=== PATIENT | female | born 1990 | race Caucasian/White ===

== ENCOUNTER 2019-06-17 11:14 | Observation (INO) ==
[2019-06-17 11:45] LABS: Basophils # 0.1 K/mcL (0.0-0.2); Basophils % 0.4 %; Eosinophils # 0.6 K/mcL (0.0-0.6); Hematocrit 44.3 % (35.3-44.9); Hemoglobin 14.6 g/dL (11.5-15.4); Immature Granulocytes % 0.5 % (0-4); Lymphocytes # 3.2 K/mcL (0.6-4.6); Lymphocytes % 17.1 %; Mean Corpuscular Hemoglobin 29.2 pg (28.0-33.3); Mean Corpuscular Volume 88.6 fL (83.0-100.0); Mean Platelet Volume 9.8 fL (9.4-12.4); Monocytes # 1.3 K/mcL (0.0-1.3); Neutrophils # 13.6 K/mcL (1.6-8.9); Platelet Count 287 K/mcL (140-400); Red Cell Distribution Width 14.4 % (11.5-14.5); White Blood Count 18.9 K/mcL (4.3-11.1)
[2019-06-17] MEDS ORDERED: 0.9 % Sodium Chloride 1,000 ML IVC ONE ×2 (11:48→13:34)
--- NOTE | 2019-06-17 11:51 | Emergency Department Note ---
Disposition Clinical Impression: Left flank pain, Pyelonephritis UTI (urinary tract infection) Qualifiers: Urinary tract infection type: site unspecified Hematuria presence: with hematuria Qualified Code(s): N39.0 - Urinary tract infection, site not specified Sepsis Qualifiers: Sepsis type: sepsis due to unspecified organism Qualified Code(s): A41.9 - Sepsis, unspecified organism Disposition: Admitted As Inpatient Condition: Undetermined Time of Disposition: 13:48 Abdominal Pain HPI - General Chief Complaint: ED Abdominal Pain Stated Complaint: "kidney stone" Time Seen by Provider: 06/17/19 11:23 Source: patient Mode of arrival: private vehicle Limitations: no limitations Nursing Notes Reviewed: Yes Vital Signs Reviewed: Yes - History of Present Illness HPI Narrative: Patient is a 28 year old Female with no PMHx. She is presenting with CC of bilateral flank pain two nights ago. First day of her last normal menstrual period was June 03. She complains of right flank pain two nights ago that was intermittently sharp. Radiated into the right lower quadrant yesterday morning. The following day she has dysuria, urgency, some intermittent hematuria. She heard a clunk in the toilet in the evening. Right flank pain resolved. She complains of left flank pain radiating into the left groin that is intermittently dull and at times sharp. Nothing makes it better or worse. She still complains of dysuria, urinary urgency, no hematuria. Normal BM this morning. Denies fevers, chills, nausea, vomiting, chest pain, shortness of breath. Denies abnormal vaginal discharge, history of STI/STD. History of one section. Pain Scale: 7 - Related Data Home Medications Medication Instructions Recorded Confirmed Benadryl 08/30/18 Previous Rx's Medication Instructions Recorded carBAMazepine [Carbamazepine ER] 200 mg PO BID 7 Days #14 tab 08/30/18 Allergies Allergy/AdvReac Type Severity Reaction Status Date / Time No Known Allergies Allergy Verified 08/30/18 17:41 All systems ED: reviewed and negative except as stated. Review of Systems: As Per HPI Constitutional: Denies: fever, chills Cardiovascular: Denies: chest pain, palpitations Respiratory: Denies: cough, dyspnea Gastrointestinal: Reports: abdominal pain. Denies: nausea, vomiting, diarrhea, constipation, melena, hematochezia Genitourinary: Reports: urgency, dysuria, hematuria. Denies: discharge Musculoskeletal: Reports: back pain Neurological: Denies: headache, weakness, numbness Abdominal Pain PMH - Past Medical History Medical history: Reports: no medical history Female Surgical History: Reports: Psychiatric history: Reports: no psych history - Social History Smoking status: Never smoker Alcohol use: Reports: occasionally Drug use: Reports: none Physical Exam - General Limitations: no limitations General appearance: alert, in no apparent distress - Head Head exam: atraumatic, normocephalic - Eye Eye exam: Present: normal appearance, EOMI - ENT ENT exam: mucous membranes dry - Neck Neck exam: Present: normal inspection, trachea midline - Chest Chest inspection: Present: normal inspection, symmetric chest wall rise - Respiratory Respiratory exam: Present: normal lung sounds bilaterally. Absent: respiratory distress - Cardiovascular Cardiovascular exam: Present: normal rhythm, tachycardia, normal heart sounds - Abdominal Exam Abdominal exam: Present: soft, other (Mild left CVA and left lower quadrant abdominal tenderness to palpation without guarding, rebound, rigidity) - Extremities Exam Extremities exam: Present: normal capillary refill. Absent: pedal edema, calf tenderness - Back Exam Back exam: Present: CVA tenderness (L) - Neurological Exam Neurological exam: Present: alert, oriented X3 - Psychiatric Psychiatric exam: Present: normal affect, normal mood - Skin Skin exam: Present: warm, dry. Absent: diaphoresis, pallor Course Vital Signs Temperature 99.1 F 06/17/19 11:16 Pulse Rate 122 06/17/19 11:16 Respiratory Rate 16 06/17/19 11:16 Blood Pressure 128/87 06/17/19 11:16 O2 Sat by Pulse Oximetry 98 06/17/19 11:16 Temperature 99.1 F 06/17/19 11:16 Pulse Rate 79 06/17/19 14:08 Respiratory Rate 16 06/17/19 14:08 Blood Pressure 114/69 06/17/19 14:08 O2 Sat by Pulse Oximetry 97 06/17/19 14:08 Oxygen Delivery Oxygen Delivery Room Air Abdominal Pain - MDM Narrative Medical decision making narrative: Patient is nontoxic appearing, afebrile. She is slightly tachycardic with heart rate in the 115-120s. She appears dry. We will give her a liter of IV fluids. CBC, BMP, hepatic panel, lipase will be obtained. Urinalysis and urine pregnanc y will be obtained. High clinical suspicion for kidney stone, urinary tract infection possible pyelonephritis. Once urine comes back negative, will give the patient IV Toradol and obtain CT abdomen and pelvis as the patient has no history of kidney stones. Patient denies any abnormal vaginal discharge or bleeding. 12:30 Lactate is 0.7. Patient does have a urinary tract infection. We will give IV Rocephin to cover for possible pyelonephritis. We will obtain CT abdomen and pelvis without IV contrast. We will give her Toradol for pain. negative. 13:[address] results reviewed. She has bilateral pyelonephritis. She has a urinary tract infection. Urine culture sent. She is sepsis secondary to pyelonephritis. No stones were seen on the CT. BUN and Cr within normal limits. 13:30 Patient is still tachycardic and we will give another liter of IV fluids. Heart rate is in 110's. Hospitalist paged for admission. 13:[address] Bajwa, hospitalist who accepts admission. - Medical Records Medical records reviewed: Yes I reviewed the patient's medical records. - Lab Data Lab results reviewed: Yes I reviewed the patient's lab results. Result diagrams: 06/17/19 11:38 06/17/19 11:38 Lab Results 06/17/19 06/17/19 06/17/19 Range/Units 11:38 11:38 11:56 WBC 18.9 H (4.3-11.1) K/mcL RBC 5.00 H (3.82-4.97) M/mcL Hgb 14.6 (11.5-15.4) g/dL Hct 44.3 (35.3-44.9) % MCV 88.6 (83.0-100.0) fL MCH 29.2 (28.0-33.3) pg MCHC 33.0 (31.6-35.5) g/dL RDW 14.4 (11.5-14.5) % Plt Count 287 (140-400) K/mcL MPV 9.8 (9.4-12.4) fL Immature Gran % 0.5 (0-4) % Seg Neutrophils % 72.0 % Lymphocytes % 17.1 % Monocytes % 7.0 % Eosinophils % 3.0 % Basophils % 0.4 % Neutrophils # 13.6 H (1.6-8.9) K/mcL Lymphocytes # 3.2 (0.6-4.6) K/mcL Monocytes # 1.3 (0.0-1.3) K/mcL Eosinophils # 0.6 (0.0-0.6) K/mcL Basophils # 0.1 (0.0-0.2) K/mcL Sodium 139 (136-145) mEq/L Potassium 4.3 (3.5-5.1) mEq/L Chloride 110 H (98-107) mEq/L Carbon Dioxide 22 L (23-29) mEq/L BUN 6 (6-20) mg/dL Creatinine 0.72 (0.60-1.20) mg/dL Est GFR ( Amer) > 60 (> 60) Est GFR (Non-Af Amer) > 60 (> 60) BUN/Creatinine Ratio 8 (6-26) Glucose 90 (70-105) mg/dL Calculated Osmolality 285 (280-300) Lactic Acid 0.7 (0.5-2.2) mmol/L Calcium 8.7 (8.6-10.3) mg/dL Total Bilirubin 0.3 (0.3-1.0) mg/dL Direct Bilirubin 0.1 (0.0-0.2) mg/dL Indirect Bilirubin 0.2 (0.0-1.2) mg/dL AST 12 L (13-39) Units/L ALT 10 (7-52) Units/L Alkaline Phosphatase 41 (34-104) Units/L Serum Total Protein 6.9 (6.4-8.9) g/dL Albumin 4.1 (3.5-5.7) g/dL Globulin 2.8 (2.4-3.5) g/dL Albumin/Globulin Ratio 1.5 (1.1-2.2) Amylase 16 L (29-103) Units/L Lipase 3 L (11-82) Units/L Urine Color (Yellow) Urine Clarity (Clear) Urine pH (5.0-8.0) pH Units Ur Specific [place] (1.010-1.025) Urine Protein (Neg-Trace) mg/dL Urine Glucose (UA) (Normal) mg/dL Urine Ketones (Negative) mg/dL Urine Blood (Negative) Urine Nitrite (Negative) Urine Bilirubin (Negative) Urine Urobilinogen (Normal) mg/dL Ur Leukocyte Esterase (Negative) Urine Microscopic RBC (0-3) per hpf Urine Microscopic WBC (0-3) per hpf Ur Squamous Epith Cells (None-Few) per lpf Urine Bacteria (None-Few) per hpf Hyaline Casts (None-Few) per lpf Ur Culture Indicated? (NO) Urine Test (Negative) 06/17/19 06/17/19 Range/Units 12:00 12:00 WBC (4.3-11.1) K/mcL RBC (3.82-4.97) M/mcL Hgb (11.5-15.4) g/dL Hct (35.3-44.9) % MCV (83.0-100.0) fL MCH (28.0-33.3) pg MCHC (31.6-35.5) g/dL RDW (11.5-14.5) % Plt Count (140-400) K/mcL MPV (9.4-12.4) fL Immature Gran % (0-4) % Seg Neutrophils % % Lymphocytes % % Monocytes % % Eosinophils % % Basophils % % Neutrophils # (1.6-8.9) K/mcL Lymphocytes # (0.6-4.6) K/mcL Monocytes # (0.0-1.3) K/mcL Eosinophils # (0.0-0.6) K/mcL Basophils # (0.0-0.2) K/mcL Sodium (136-145) mEq/L Potassium (3.5-5.1) mEq/L Chloride (98-107) mEq/L Carbon Dioxide (23-29) mEq/L BUN (6-20) mg/dL Creatinine (0.60-1.20) mg/dL Est GFR ( Amer) (> 60) Est GFR (Non-Af Amer) (> 60) BUN/Creatinine Ratio (6-26) Glucose (70-105) mg/dL Calculated Osmolality (280-300) Lactic Acid (0.5-2.2) mmol/L Calcium (8.6-10.3) mg/dL Total Bilirubin (0.3-1.0) mg/dL Direct Bilirubin (0.0-0.2) mg/dL Indirect Bilirubin (0.0-1.2) mg/dL AST (13-39) Units/L ALT (7-52) Units/L Alkaline Phosphatase (34-104) Units/L Serum Total Protein (6.4-8.9) g/dL Albumin (3.5-5.7) g/dL Globulin (2.4-3.5) g/dL Albumin/Globulin Ratio (1.1-2.2) Amylase (29-103) Units/L Lipase (11-82) Units/L Urine Color Yellow (Yellow) Urine Clarity Cloudy A (Clear) Urine pH 6.5 (5.0-8.0) pH Units Ur Specific [place] 1.012 (1.010-1.025) Urine Protein >=300 H (Neg-Trace) mg/dL Urine Glucose (UA) Normal (Normal) mg/dL Urine Ketones Negative (Negative) mg/dL Urine Blood Large H (Negative) Urine Nitrite Negative (Negative) Urine Bilirubin Negative (Negative) Urine Urobilinogen Normal (Normal) mg/dL Ur Leukocyte Esterase Moderate H (Negative) Urine Microscopic RBC TNTC H (0-3) per hpf Urine Microscopic WBC TNTC H (0-3) per hpf Ur Squamous Epith Cells Many H (None-Few) per lpf Urine Bacteria Moderate H (None-Few) per hpf Hyaline Casts None Seen (None-Few) per lpf Ur Culture Indicated? YES A (NO) Urine Test Negative (Negative) - Radiology Data Radiology results reviewed: Yes I reviewed the patient's radiology results. Abdomen/Pelvis CT 06/17/19 12:37 IMPRESSION: Moderate inflammation of the urinary bladder. [id number] inflammation involving the bilateral ureters. Minimal bilateral hydronephrosis. No obstructing or nonobstructing renal calculi identified. Findings may be seen in setting of a bilateral pyelonephritis and UTI. Correlation with UA/urine culture is recommended. Appendix is not identified. No secondary CT evidence of acute appendicitis. Slightly asymmetric left adnexal lesion. If further evaluation is clinically warranted, follow-up pelvic ultrasound may be obtained. D/ / Rigoberto Irvin MD / Rigoberto Irvin MD Interpreting Provider: Rigoberto Irvin MD Critical Care Time Critical Care Time: Yes Total Critical Care Time: 35 Attestation: Critical care time 35 minutes managing patient's sepsis and bilateral pyelonephritis. Attestation Statement - Attestation Attestation: Patient was seen with resident physician. I reviewed the history, physical, assessment and plan, and agree with the findings. I also personally evaluated this patient and had [id number]-[id number] time with this patient. 28-year-old female presents to the emergency Department chief complaint of bilateral flank pain. Patient states it started on both sides but now is mostly in the left flank. Radiates down anteriorly. No history of kidney stones. She has had some dysuria and some hematuria as well. She denies fevers or chills. Does not nausea vomiting or diarrhea. Symptoms of been ongoing for last couple days. She is not sure she is . Review of systems as above remainder negative. Physical exam vital signs are stable. ENT is unremarkable. Heart regular rhythm and rate. Lungs are clear. Abdomen is soft and nontender. Extremities are unremarkable. Neurologically intact. Skin no rashes. Psych normal. ED course. Patient sure and was positive for signs of infection. She is given antibiotics. CT scan was also obtained. I think patient likely has pyelonephritis based on symptoms and findings she also has an elevated white b lood cell count. Although the patient appeared well CT scan revealed bilateral pyelo-. Additionally her vital signs were indicative of some sepsis. I think this is relatively mild at this point, we will admit the patient for IV antibiotics and additional management is indicated. We spoke with the hospitalist service who agrees to accept the patient for admission. I agree with the resident physician assessment and plan.
[2019-06-17] MEDS ORDERED: Ketorolac 15 MG/ML VIAL IVP ONE ×2 (11:52→12:36)
[2019-06-17 12:08] LABS: Bilirubin,Urine Negative (Negative); Blood,Urine Large (Negative); Clarity,Urine Cloudy (Clear); Color,Urine Yellow (Yellow); Glucose,Urine (UA) Normal (Normal); Ketones,Urine Negative (Negative); Leukocyte Esterase,Urine Moderate (Negative); Nitrite,Urine Negative (Negative); PH,Urine 6.5 pH Units (5.0-8.0); Protein,Urine >=300 mg/dL (Neg-Trace); Specific Gravity,Urine 1.012 (1.010-1.025); Urobilinogen,Urine Normal (Normal)
[2019-06-17 12:11] LABS: Bacteria,Urine Moderate per hpf (None-Few); Hyaline Casts,Urine None Seen per lpf (None-Few); RBC,Urine TNTC per hpf (0-3); Squamous Epithelial Cell,Urine Many per lpf (None-Few); WBC,Urine TNTC per hpf (0-3)
[2019-06-17] MEDS ORDERED: cefTRIAXone 1,000 MG in Water for inj. (sterile) 10 ML IVP ONE (12:36)
[2019-06-17 12:47] LABS: Alanine Aminotransferase 10 Units/L (7-52); Albumin 4.1 g/dL (3.5-5.7); Albumin/Globulin Ratio 1.5 (1.1-2.2); Alkaline Phosphatase 41 Units/L (34-104); Amylase 16 Units/L (29-103); Aspartate Amino Transferase 12 Units/L (13-39); BUN/Creatinine Ratio 8 (6-26); Bilirubin,Direct 0.1 mg/dL (0.0-0.2); Bilirubin,Indirect 0.2 mg/dL (0.0-1.2); Bilirubin,Total 0.3 mg/dL (0.3-1.0); Blood Urea Nitrogen 6 mg/dL (6-20); Calcium 8.7 mg/dL (8.6-10.3); Carbon Dioxide 22 mEq/L (23-29); Chloride 110 mEq/L (98-107); Globulin 2.8 g/dL (2.4-3.5); Glucose 90 mg/dL (70-105); Lipase 3 Units/L (11-82); Osmolality,Calculated 285 (280-300); Potassium 4.3 mEq/L (3.5-5.1); Sodium 139 mEq/L (136-145); Total Protein 6.9 g/dL (6.4-8.9); eGFR For African Americans > 60 (> 60); eGFR For Non-African Americans > 60 (> 60)
[2019-06-17] MEDS ORDERED: Acetaminophen 325 MG TABLET PO PRN (14:07)
[2019-06-17] MEDS ORDERED: Naloxone 0.4 MG/ML INJ IVP PRN (14:07)
--- NOTE | 2019-06-17 14:07 | Internal Med History&Physical ---
Date of Encounter: 06/17/19 Time of Encounter: 14:06 Internal Medicine - H&P: HPI History of present illness: Patient is a 28 year old Female with PMH of UTI who presented with B/L flank pain, the patient describes the pain as sharp radiating to her lower quadrant. She also complain of dysuria, urgency and increased frequency of urination as well as hematuria. The patient was evaluated by the ER staff and CAT scan of the abdomen was obtained and revealed evidence of minimal bilateral nephr olithiasis as well as bilateral pyelonephritis the patient was started on empiric antibiotic with Rocephin. Blood cultures and urine culture was obtained and the patient was admitted for further evaluation and management of bilateral pyelonephritis, given that there is no evidence of stones on CAT scan ER staff decided not to consult urology for the minimal hydro-nephrosis that was appreciated and the CT scan. Patient denies fever, chills, abdominal pain, diarrhea, nausea, vomiting, chest pain, shortness of breath, palpitation and progressive setting of lower extremity edema Past Med Surg Social Fam HX - Past Medical History Medical history: no medical history Psychiatric history: no psych history - Social History Smoking Status: Never smoker Smokeless Tobacco Status: No Alcohol use: occasionally Drug use: none Internal Medicine - H&P: Meds Benadryl 08/30/18 [History] carBAMazepine [Carbamazepine ER] 200 mg PO BID 7 Days #14 tab 08/30/18 [Rx] Allergy/AdvReac Type Severity Reaction Status Date / Time No Known Allergies Allergy Verified 08/30/18 17:41 All Systems PM: A 10-system review of systems was performed and is negative for pertinent findings except as documented above in the HPI. - Constitutional Vitals: Temp Pulse Resp BP Pulse Ox 99.1 F 122 16 128/87 98 06/17/19 11:16 06/17/19 11:16 06/17/19 11:16 06/17/19 11:38 06/17/19 11:16 General appearance: Present: A&O X 3 - Head Head exam: Present: atraumatic, normocephalic - Neck Neck exam general surgery: Present: supple, trachea midline. Absent: lymphadenopathy - Respiratory Respiratory exam: Present: CTAB. Absent: accessory muscle use, rales, rhonchi, wheezes - Cardiovascular Cardiovascular exam: Present: RRR, +S1, +S2. Absent: diastolic murmur, gallop, rubs, systolic murmur - GI/Abdominal GI/Abdominal exam: Present: soft, tenderness, no peritoneal signs. Absent: distended - Extremities Exam Extremities exam: Present: warm, radial pulses palpable and symmetrical. Abs ent: calf tenderness, cyanotic, pedal edema Internal Med - H&P Results - Labs CBC & Chem 7: 06/17/19 11:38 06/17/19 11:38 Labs: Short CBC 06/17/19 Range/Units 11:38 WBC 18.9 H (4.3-11.1) K/mcL Hgb 14.6 (11.5-15.4) g/dL Hct 44.3 (35.3-44.9) % Plt Count 287 (140-400) K/mcL Neutrophils # 13.6 H (1.6-8.9) K/mcL BMP 06/17/19 11:38 Sodium 139 Potassium 4.3 Chloride 110 H Carbon Dioxide 22 L BUN 6 Creatinine 0.72 Glucose 90 Calcium 8.7 Liver Function 06/17/19 Range/Units 11:38 Total Bilirubin 0.3 (0.3-1.0) mg/dL Direct Bilirubin 0.1 (0.0-0.2) mg/dL AST 12 L (13-39) Units/L ALT 10 (7-52) Units/L Alkaline Phosphatase 41 (34-104) Units/L Albumin 4.1 (3.5-5.7) g/dL Urine 06/17/19 Range/Units 12:00 Urine Color Yellow (Yellow) Urine Clarity Cloudy A (Clear) Urine pH 6.5 (5.0-8.0) pH Units Ur Specific [place] 1.012 (1.010-1.025) Urine Protein >=300 H (Neg-Trace) mg/dL Urine Glucose (UA) Normal (Normal) mg/dL - Impressions ITS Impressions Abdomen/Pelvis CT 06/17/19 12:37 IMPRESSION: Moderate inflammation of the urinary bladder. [id number] inflammation involving the bilateral ureters. Minimal bilateral hydronephrosis. No obstructing or nonobstructing renal calculi identified. Findings may be seen in setting of a bilateral pyelonephritis and UTI. Correlation with UA/urine culture is recommended. Appendix is not identified. No secondary CT evidence of acute appendicitis. Slightly asymmetric left adnexal lesion. If further evaluation is clinically warranted, follow-up pelvic ultrasound may be obtained. D/ / Rigobreto Irvin MD / Rigoberto Irvin MD Interpreting Provider: Rigoberto Irvin MD - Assessment and Plan (1) Pyelonephritis Current Visit: Yes Status: Resolved Assessment and plan: We will start the patient on empiric antibiotic with Rocephin, we will continue to monitor blood culture and urine culture results and adjust antibiotic regimen accordingly. We will start the patient on IV hydration with normal saline. (2) Bilateral hydronephrosis Current Visit: Yes Status: Acute Assessment and plan: As better CAT scan results is no evidence of kidney stones and bilateral hydronephrosis is minimal. - Time Spent With Patient Total time spent is greater than 50% in coordination of care (as documented) at patient's floor/unit and/or counseling patient:
[2019-06-17] MEDS: 0.9 % Sodium Chloride 1,000 ML IVC SCH ×2 (15:32→23:26)
[2019-06-17] MEDS: *HR* HYDROcodone/Acet 5/325 mg TABLET PO PRN (17:13)
[2019-06-17] MEDS: Ondansetron 4 MG/2 ML VIAL IVP PRN (18:25)
[2019-06-17 21:27] LABS: Bilirubin,Urine Negative (Negative); Blood,Urine Large (Negative); Clarity,Urine Cloudy (Clear); Color,Urine Yellow (Yellow); Glucose,Urine (UA) Normal (Normal); Ketones,Urine Negative (Negative); Leukocyte Esterase,Urine Moderate (Negative); Nitrite,Urine Negative (Negative); PH,Urine 6.5 pH Units (5.0-8.0); Protein,Urine 30 mg/dL (Neg-Trace); Specific Gravity,Urine 1.006 (1.010-1.025); Urobilinogen,Urine Normal (Normal)
[2019-06-17 21:28] LABS: Bacteria,Urine None Seen per hpf (None-Few); Hyaline Casts,Urine None Seen per lpf (None-Few); Squamous Epithelial Cell,Urine Many per lpf (None-Few); WBC,Urine 50-100 per hpf (0-3)
[2019-06-18] MEDS: *HR* HYDROcodone/Acet 5/325 mg TABLET PO PRN ×2 (04:09→18:31)
[2019-06-18 07:57] LABS: Basophils # 0.1 K/mcL (0.0-0.2); Basophils % 0.4 %; Eosinophils # 0.6 K/mcL (0.0-0.6); Eosinophils % 4.3 %; Hematocrit 38.5 % (35.3-44.9); Immature Granulocytes % 0.5 % (0-4); Lymphocytes # 3.7 K/mcL (0.6-4.6); Mean Corpuscular HGB Conc 32.2 g/dL (31.6-35.5); Mean Platelet Volume 10.4 fL (9.4-12.4); Monocytes # 1.3 K/mcL (0.0-1.3); Monocytes % 9.2 %; Platelet Count 243 K/mcL (140-400); Red Blood Count 4.28 M/mcL (3.82-4.97); Red Cell Distribution Width 14.5 % (11.5-14.5); Segmented Neutrophils % 58.6 %; White Blood Count 13.6 K/mcL (4.3-11.1)
[2019-06-18 08:08] LABS: INR 1.2; Prothrombin Time 13.5 Seconds (9.4-12.1)
[2019-06-18 08:11] LABS: Activated Partial Thrombo Time 34.4 Seconds (26.0-36.0)
[2019-06-18 08:16] LABS: Alanine Aminotransferase 7 Units/L (7-52); Albumin 3.3 g/dL (3.5-5.7); Albumin/Globulin Ratio 1.4 (1.1-2.2); Alkaline Phosphatase 37 Units/L (34-104); Aspartate Amino Transferase 9 Units/L (13-39); BUN/Creatinine Ratio 6 (6-26); Bilirubin,Total 0.5 mg/dL (0.3-1.0); Blood Urea Nitrogen 4 mg/dL (6-20); Calcium 8.2 mg/dL (8.6-10.3); Carbon Dioxide 24 mEq/L (23-29); Chloride 112 mEq/L (98-107); Chol/HDL Ratio 4.6 (0-4.9); Cholesterol 142 mg/dL (< 200); Globulin 2.3 g/dL (2.4-3.5); Glucose 87 mg/dL (70-105); HDL Cholesterol 31 mg/dL (40-59); LDL Cholesterol,Calculated 92 mg/dL (0-99); Osmolality,Calculated 288 (280-300); Phosphorous 2.5 mg/dL (2.7-4.5); Potassium 3.6 mEq/L (3.5-5.1); Sodium 141 mEq/L (136-145); Total Protein 5.6 g/dL (6.4-8.9); Triglycerides 94 mg/dL (< 150); eGFR For African Americans > 60 (> 60); eGFR For Non-African Americans > 60 (> 60)
[2019-06-18 08:17] LABS: Hemoglobin 12.4 g/dL (11.5-15.4)
[2019-06-18] MEDS: cefTRIAXone 2,000 MG in Water for inj. (sterile) 20 ML IVP SCH (08:29)
--- NOTE | 2019-06-18 09:37 | Internal Med Progress Note ---
Hospitalist Progress Note - Encounter Date of Encounter: 06/18/19 Time of Encounter: 08:41 - Subjective Interval History: Patient seen and examined this morning at bedside. No acute overnight events. Feeling better. Denies any fevers chills nausea vomiting or diarrhea. Has some left-sided back pain and mild suprapubic pain. Denies previous history of kidney stones. Denies any recent antibiotic usage or recurrent UTI history. - Exam Vitals: Temp Pulse Resp BP Pulse Ox 98.4 F 74 15 103/71 100 06/18/19 06:54 06/18/19 06:54 06/18/19 06:54 06/18/19 06:54 06/18/19 07:57 Exam: General: In no acute distress. Respiratory exam: CTAB. no accessory muscle use, rales, rhonchi, wheezes Cardiovascular exam: RRR, +S1, +S2. no murmur, gallop, rubs. GI/Abdominal exam: Lt CVA tenderness, suprapubic tenderness, Non-distended, normal bowel sounds, soft, no peritoneal signs. Extremities exam: no pedal edema, pulses palpable in b/l lower extremities. no calf tenderness Neurological exam: CN II-XII intact, AO X3, no focal deficits. Skin exam: No skin rash - Assessment and Plan (1) Pyelonephritis Current Visit: Yes Status: Resolved (2) Bilateral hydronephrosis Current Visit: Yes Status: Acute - Summary of Assessment and Plan Summary of Assessment and Plan: Assessment Acute Pyelonephritis Chronic none Plan - CT with minimal b/l hydronephrosis. No obstruction noticed. Abnormal UA. c/w empiric ceftriaxone. f/u blood and urine cultures. c/w IVF - Has finding of Lt adnexal asymetric with Lt sided tenderness. Will obtain pelvic ultrasound. Is monogamous relation but does not use protection. Will obtain urine chlamydia and gonorrhea testing to which patient agrees. Internal Medicine: Result - Labs CBC & Chem 7: 06/18/19 06:42 06/18/19 06:42 Labs: Short CBC 06/17/19 06/18/19 Range/Units 11:38 06:42 WBC 18.9 H 13.6 H (4.3-11.1) K/mcL Hgb 14.6 12.4 D (11.5-15.4) g/dL Hct 44.3 38.5 (35.3-44.9) % Plt Count 287 243 (140-400) K/mcL Neutrophils # 13.6 H 8.0 (1.6-8.9) K/mcL BMP 06/17/19 06/18/19 11:38 06:42 Sodium 139 141 Potassium 4.3 3.6 Chloride 110 H 112 H Carbon Dioxide 22 L 24 BUN 6 4 L Creatinine 0.72 0.65 Glucose 90 87 Calcium 8.7 8.2 L Liver Function 06/17/19 06/18/19 Range/Units 11:38 06:42 Total Bilirubin 0.3 0.5 (0.3-1.0) mg/dL Direct Bilirubin 0.1 (0.0-0.2) mg/dL AST 12 L 9 L (13-39) Units/L ALT 10 7 (7-52) Units/L Alkaline Phosphatase 41 37 (34-104) Units/L Albumin 4.1 3.3 L (3.5-5.7) g/dL Urine 06/17/19 06/17/19 Range/Units 12:00 21:05 Urine Color Yellow Yellow (Yellow) Urine Clarity Cloudy A Cloudy A (Clear) Urine pH 6.5 6.5 (5.0-8.0) pH Units Ur Specific [place] 1.012 1.006 L (1.010-1.025) Urine Protein >=300 H 30 H (Neg-Trace) mg/dL Urine Glucose (UA) Normal Normal (Normal) mg/dL - ABG Interpretation ABG results: PT/INR, D-dimer PT 13.5 Seconds (9.4-12.1) H 06/18/19 06:42 - Impressions Impressions Abdomen/Pelvis CT 06/17/19 12:37 IMPRESSION: Moderate inflammation of the urinary bladder. [id number] inflammation involving the bilateral ureters. Minimal bilateral hydronephrosis. No obstructing or nonobstructing renal calculi identified. Findings may be seen in the setting of bilateral pyelonephritis and UTI. Correlation with UA/urine culture is recommended. Appendix is not identified. No secondary CT evidence of acute appendicitis. Slightly asymmetric left adnexal lesion. If further evaluation is clinically warranted, follow-up pelvic ultrasound may be obtained. D/ / 06/17/2019 14:12:37 Rigoberto Irvin MD / wandy Interpreting Provider: Rigoberto Irvin MD Consult Discharge Plan - Plan Referrals: Juanis Billy CNP [Primary Care Provider] -
[2019-06-18] MEDS ORDERED: Ringers Solution, Lactated 1,000 ML IVC SCH (11:45)
[2019-06-18 14:24] LABS: Chlamydia Trachomatis DNA Ur NOT DETECTED (Not Detect)
[2019-06-18] MEDS: Ondansetron 4 MG/2 ML VIAL IVP PRN (14:33)
[2019-06-19] MEDS: cefTRIAXone 2,000 MG in Water for inj. (sterile) 20 ML IVP SCH (09:00)
[2019-06-19] MEDS: *HR* HYDROcodone/Acet 5/325 mg TABLET PO PRN (09:26)
[2019-06-19 12:23] VITALS: BP 120/79
--- NOTE | 2019-06-19 12:35 | Discharge Summary ---
- NOTES TO OUTPATIENT PROVIDER Notes to Outpatient Provider: Discharged to finish a 10 day course of antibiotics for uncomplicated pyelonephritis with 7 more days of Omnicef Orders not resulted at time of discharge: Pending orders 06/17/19 13:32 Culture,Blood [BC] Stat Date of Encounter: 06/19/19 Time of Encounter: 12:30 - Discharge Diagnosis (1) Pyelonephritis Priority: Primary Status: Resolved (2) Bilateral hydronephrosis Priority: Secondary Status: Acute Hospital course: Ms. Cronin is a 28 year old female with no significant past medical history came in with complain of bilateral flank pain was found to have signs of UTI with pyelonephritis on CT scan with bilateral hydronephrosis. She was started on Rocephin. Clinically she improved over the course of 3 days of her hospital stay. Urine culture grew Escherichia coli pansensitive. Ultrasound was obtained with suspicion of the Lt adnexal Swelling which was unremarkable. chlamydia and gonorrhea was negative. She remained stable and afebrile. She is stable to be discharged home to finish 7 day coarse of Omnicef to finish 10 day course of antibiotics. Discharge discussed with: patient, nurse - Time Spent with Patient Total time spent providing and/or coordinating discharge services: Time spent: Greater than 30 minutes (35) - Discharge Medications Prescriptions: New Cefdinir [Omnicef] 300 mg PO BID 7 Days #14 capsule Home Medications: Cefdinir [Omnicef] 300 mg PO BID 7 Days #14 capsule 06/19/19 [Rx] Allergies/Adverse Reactions: Allergy/AdvReac Type Severity Reaction Status Date / Time No Known Allergies Allergy Verified 06/18/19 17:37 Date of admission: 06/17/19 13:54 Primary care physician: Juanis Billy CNP Discharging clinician: Florina Irvin - Constitutional Vitals: Temp Pulse Resp BP Pulse Ox 98.2 F 66 14 120/79 98 06/19/19 12:21 06/19/19 12:21 06/19/19 12:21 06/19/19 12:21 06/19/19 12:21 Exam: General: In no acute distress. Respiratory exam: CTAB. no accessory muscle use, rales, rhonchi, wheezes Cardiovascular exam: RRR, +S1, +S2. no murmur, gallop, rubs. GI/Abdominal exam: no CVA tenderness, Non-distended, normal bowel sounds, soft, no peritoneal signs. Extremities exam: no pedal edema, pulses palpable in b/l lower extremities. no calf tenderness Neurological exam: CN II-XII intact, AO X3, no focal deficits. Skin exam: No skin rash - Patient Status Disposition: Home, Self-Care Condition: Undetermined - Discharge Instructions Follow Up With: Juanis Billy [employer] [Primary Care Provider] -
== END 2019-06-19 15:26 | disposition home or self-care (01) ==
LOC: EMEROOARM 11:14 → 3ANU 11:14 → SUATTDRO 13:54 → 3ANU 14:54
PROVIDERS: ADMIT Internal Medicine Nephrology; ATTEND Internal Medicine

== ENCOUNTER 2020-08-02 01:59 | Inpatient (IN) ==
[2020-08-02] MEDS ORDERED: EPHEDrine 50 MG/ML VIAL ONE (02:41)
[2020-08-02] MEDS ORDERED: *HR* Morphine Sulfate/PF 10 MG/10 ML AMPUL ONE (02:41)
[2020-08-02] MEDS ORDERED: *HR* FentaNYL (PF) 100 MCG/2 ML VIAL ONE (02:41)
[2020-08-02] MEDS ORDERED: Ringers Solution, Lactated 1,000 ML ONE (02:43)
[2020-08-02] MEDS ORDERED: *HR* Midazolam HCl 2 MG/2 ML VIAL ONE (02:53)
[2020-08-02] MEDS ORDERED: *HR* FentaNYL (PF) 250 MCG/5 ML VIAL ONE ×2 (02:54→03:00)
[2020-08-02] MEDS ORDERED: Metoclopramide 10 MG/2 ML VIAL IVP PRN ×2 (02:56→06:42)
[2020-08-02] MEDS ORDERED: Naloxone 0.4 MG/ML INJ IVP PRN ×2 (02:56→03:39)
[2020-08-02] MEDS ORDERED: Famotidine 20 MG/2 ML VIAL IVP PRN (02:56)
[2020-08-02] MEDS ORDERED: *HR* Oxytocin 10 UNIT/ML VIAL IM ONE (02:58)
[2020-08-02] MEDS ORDERED: Ringers Solution, Lactated 1,000 ML IVC SCH (03:00)
[2020-08-02] MEDS ORDERED: Acetaminophen IV 1,000 MG/100 ML INFUS..BTL ONE (03:03)
[2020-08-02] MEDS ORDERED: Ketorolac 30 MG/ML VIAL ONE (03:03)
[2020-08-02 03:07] LABS: Basophils # 0.1 K/mcL (0.0-0.2); Basophils % 0.4 %; Eosinophils # 0.5 K/mcL (0.0-0.6); Eosinophils % 2.6 %; Hematocrit 31.7 % (35.3-44.9); Hemoglobin 10.7 g/dL (11.5-15.4); Immature Granulocytes % 1.7 % (0-4); Lymphocytes # 3.6 K/mcL (0.6-4.6); Lymphocytes % 18.9 %; Mean Corpuscular HGB Conc 33.8 g/dL (31.6-35.5); Mean Corpuscular Hemoglobin 30.1 pg (28.0-33.3); Mean Platelet Volume 11.2 fL (9.4-12.4); Monocytes # 1.2 K/mcL (0.0-1.3); Monocytes % 6.5 %; Neutrophils # 13.1 K/mcL (1.6-8.9); Platelet Count 329 K/mcL (140-400); Red Blood Count 3.56 M/mcL (3.82-4.97); Red Cell Distribution Width 13.7 % (11.5-14.5); Segmented Neutrophils % 69.9 %; White Blood Count 18.8 K/mcL (4.3-11.1)
[2020-08-02] MEDS ORDERED: Lidocaine -MPF 2% 5 ML VIAL ONE (03:15)
[2020-08-02] MEDS ORDERED: Dexamethasone 4 MG/ML VIAL ONE (03:15)
[2020-08-02] MEDS ORDERED: Ondansetron 4 MG/2 ML VIAL ONE (03:15)
[2020-08-02] MEDS ORDERED: Ketamine *HR* 500 MG/10 ML MDV ONE (03:31)
[2020-08-02] MEDS ORDERED: Ondansetron 4 MG/2 ML VIAL IVP PRN ×2 (03:39→06:42)
[2020-08-02] MEDS ORDERED: *HR* HYDROMORPHONE 2 MG/ML VIAL ONE (03:46)
[2020-08-02] MEDS ORDERED: Oxytocin 20 units/ LR 1000 mL 20 UNIT/1,000 ML BAG IVC ONE ×2 (03:49→04:49)
[2020-08-02] MEDS ORDERED: *HR* Labetalol 20 MG/4 ML SYRINGE IVP ONE ×2 (04:16→05:16)
[2020-08-02] MEDS ORDERED: *HR* Magnesium Sulfate 1 GM/2 ML VIAL ONE (04:16)
[2020-08-02] MEDS ORDERED: *HR* Succinylcholine 200 MG/10 ML VIAL IVP ONE (04:17)
[2020-08-02] MEDS: Morphine PCA 30 MG/ 30 ML 30 ML PCA.VIAL IVC PRN ×2 (05:26→12:42)
[2020-08-02] MEDS ORDERED: *HR* Promethazine 25 MG/ML VIAL ONE (06:00)
[2020-08-02] MEDS ORDERED: Simethicone 80 MG TAB.CHEW PO PRN (06:42)
[2020-08-02] MEDS ORDERED: Oxytocin 20 units/ LR 1000 mL 20 UNIT/1,000 ML BAG IVC SCH (06:42)
[2020-08-02] MEDS ORDERED: Sennosides 8.6 MG TABLET PO PRN (06:42)
[2020-08-02] MEDS: Ibuprofen 600 MG TABLET PO PRN ×3 (09:26→22:14)
[2020-08-02] MEDS: metroNIDAZOLE 500 MG TABLET PO SCH ×3 (09:26→20:34)
[2020-08-02] MEDS: CeFAZolin 2,000 MG/50 ML BAG IVPB SCH ×3 (09:27→23:56)
[2020-08-02] MEDS: *HR* OxyCODONE/APAP 5/325 TABLET PO PRN ×3 (13:59→23:56)
[2020-08-02] MEDS: Prenatal Vit/FA 1 EACH TABLET PO SCH (16:15)
[2020-08-03] MEDS: Ibuprofen 600 MG TABLET PO PRN (05:04)
[2020-08-03] MEDS: *HR* OxyCODONE/APAP 5/325 TABLET PO PRN ×2 (07:30→11:30)
[2020-08-03 08:57] LABS: Basophils # 0.1 K/mcL (0.0-0.2); Basophils % 0.3 %; Eosinophils # 0.3 K/mcL (0.0-0.6); Eosinophils % 1.5 %; Hematocrit 22.5 % (35.3-44.9); Immature Granulocytes % 1.9 % (0-4); Lymphocytes # 4.6 K/mcL (0.6-4.6); Lymphocytes % 23.4 %; Mean Corpuscular HGB Conc 34.2 g/dL (31.6-35.5); Mean Corpuscular Hemoglobin 31.6 pg (28.0-33.3); Mean Corpuscular Volume 92.2 fL (83.0-100.0); Monocytes # 1.5 K/mcL (0.0-1.3); Monocytes % 7.4 %; Neutrophils # 12.8 K/mcL (1.6-8.9); Platelet Count 256 K/mcL (140-400); Red Blood Count 2.44 M/mcL (3.82-4.97); Red Cell Distribution Width 14.1 % (11.5-14.5); Segmented Neutrophils % 65.5 %; White Blood Count 19.6 K/mcL (4.3-11.1)
[2020-08-03] MEDS: metroNIDAZOLE 500 MG TABLET PO SCH (09:43)
[2020-08-03] MEDS: Prenatal Vit/FA 1 EACH TABLET PO SCH (09:44)
[2020-08-03 10:28] LABS: Hemoglobin 7.7 g/dL (11.5-15.4)
[2020-08-03 10:31] LABS: Platelet Estimate Normal (Normal); Reactive Lymphocytes Present (Not Present)
[2020-08-03 11:36] VITALS: BP 126/83
[2020-08-03 14:04] LABS: Hematocrit 23.8 % (35.3-44.9); Mean Corpuscular HGB Conc 33.6 g/dL (31.6-35.5); Mean Corpuscular Volume 92.2 fL (83.0-100.0); Mean Platelet Volume 10.5 fL (9.4-12.4); Monocytes # 1.3 K/mcL (0.0-1.3); Platelet Count 261 K/mcL (140-400); Red Blood Count 2.58 M/mcL (3.82-4.97); Red Cell Distribution Width 14.2 % (11.5-14.5); White Blood Count 16.4 K/mcL (4.3-11.1)
[2020-08-03 15:21] LABS: Lymphocytes # 3.6 K/mcL (0.6-4.6); Neutrophils # 11.5 K/mcL (1.6-8.9); Platelet Estimate Normal (Normal)
== END 2020-08-03 15:51 | disposition home or self-care (01) | DRG 788 ==
LOC: 1NENULAB → OBSVTOIN 01:59 → 1NENUOBS 06:22
PROVIDERS: ADMIT Obstetrics & Gynecology; ATTEND Obstetrics & Gynecology